=== PATIENT | female | born 1990 | race Caucasian/White ===

== ENCOUNTER 2018-12-20 14:43 | Emergency (ER) | payer SELFPAY ==
[2018-12-20] MEDS ORDERED: OXYCODONE-ACETAMINOPHEN 5-325 MG TABLET PO ONE (15:08)
--- NOTE | 2018-12-20 17:37 | ER Document Report ---
HPI - HPI Time Seen by Provider: 12/20/18 15:03 Pain Level: 5 Notes: Otherwise healthy 28-year-old female with history of abscesses presenting with abscess to left axilla. Patient reports this is been present for approximately 3 days. She denies any drainage from the area. Denies any fevers. Does report history of MRSA. Past Medical History - General Information source: Patient - Social History Smoking Status: Current Every Day Smoker Family History: Reviewed & Not Pertinent Patient has suicidal ideation: No Patient has homicidal ideation: No Infectious Medical History: Reports: Hx MRSA Surgical Hx: Negative - Immunizations Hx Diphtheria, Pertussis, Tetanus Vaccination: Yes Vertical Provider Document - CONSTITUTIONAL Notes: PHYSICAL EXAMINATION: GENERAL: Well-appearing, well-nourished and in no acute distress. HEAD: Atraumatic, normocephalic. EYES: Pupils equal round extraocular movements intact, conjunctiva are normal. ENT: Nares patent NECK: Normal range of motion LUNGS: No respiratory distress Musculoskeletal: Normal range of motion NEUROLOGICAL: Normal speech, normal gait. PSYCH: Normal mood, normal affect. SKIN: Large area of induration, erythema fluctuance noted to left axillary area. - INFECTION CONTROL TRAVEL OUTSIDE OF THE [place] IN LAST 30 DAYS: No Course - Re-evaluation Re-evalutation: Abscess incised and drained, see procedure note, patient tolerated well. Packing placed. - Vital Signs Vital signs: Temp Pulse Resp BP Pulse Ox 98.7 F 105 H 16 140/80 H 98 12/20/18 14:49 12/20/18 14:49 12/20/18 14:49 12/20/18 14:49 12/20/18 14:49 Procedures - Incision and Drainage Left axilla Type: Simple Anesthetic type: 1% Lidocaine Blade size: 11 I&D procedure: Betadine prep applied Incision Method: Incision made by scalpel Discharge - Discharge Clinical Impression: Abscess Condition: Stable Disposition: HOME, SELF-CARE Additional Instructions: You were seen for an abscess that required drainage. Please clean this area with soap and water twice daily and apply a topical antibiotic. Dress the area after each cleaning. Return to the emergency department in 48 hours for packing removal . Please return if you develop fever, vomiting, the pain at the site worsens, you notice spreading redness from the area, or you have any other symptoms that are concerning to you. Prescriptions: Sulfamethoxazole/Trimethoprim [Bactrim Ds Tablet] 1 tab PO BID #14 tablet
[2018-12-20 17:44] VITALS: BP 128/69
== END 2018-12-20 17:45 | disposition home or self-care (01) ==
LOC: ER 14:43
DX: L02.412 Cutaneous abscess of left axilla (principal); Z86.14 Personal history of Methicillin resistant Staphylococcus aureus infection; F17.200 Nicotine dependence, unspecified, uncomplicated
CPT/HCPCS: 10060; A6266; 99282

== ENCOUNTER 2018-12-22 10:06 | Emergency (ER) | payer SELFPAY ==
[2018-12-22 10:15] VITALS: BP 132/70
== END 2018-12-22 11:10 | disposition left against medical advice (07) ==
LOC: ER 10:06
DX: Z53.21 Procedure and treatment not carried out due to patient leaving prior to being seen by health care provider (principal)

== ENCOUNTER 2018-12-22 18:28 | Emergency (ER) | payer SELFPAY ==
--- NOTE | 2018-12-22 18:47 | ER Document Report ---
ED Medical Screen (RME) - General Chief Complaint: Wound Recheck Stated Complaint: ABSCESS RECHECK Time Seen by Provider: 12/22/18 18:43 TRAVEL OUTSIDE OF THE [place] IN LAST 30 DAYS: No - HPI Notes: 12/22/18 18:45 28 year old female to the ED for wound check and packing change. She had this drained two days ago. She has NOT been taking her antibiotics. I performed a brief medical screening exam on this patient and determined that this patient needs further evaluation and management from [facility] ER provider. I have ordered labs and imaging studies as indicated to aid in expediting the patient's care. - Related Data Allergies/Adverse Reactions: No Known Allergies Allergy (Verified 12/22/18 18:43) Past Medical History - Immunizations Hx Diphtheria, Pertussis, Tetanus Vaccination: Yes
[2018-12-22] MEDS ORDERED: SULFAMETHOXAZOLE/TRIMETHOPRIM 800-160 MG TABLET PO ONE (19:12)
--- NOTE | 2018-12-22 19:17 | ER Document Report ---
HPI - HPI Time Seen by Provider: 12/22/18 18:43 Pain Level: 3 Context: Patient is a 28-year-old female who presents to the emergency department with a chief complaint of left arm abscess. Patient reports she was seen 2 days ago and had an I&D of the left axilla. Patient reports she has had abscesses underneath the axilla before and does have a history of MRSA. Patient reports the wound was packed but continues to drain a thick yellow drainage with foul smell. Patient denies fever. Patient reports pain to the site. Patient states that she has not been taking her antibiotics as she just got them filled today. Patient has not had a dose today. - REPRODUCTIVE Reproductive: DENIES: : Past Medical History - General Information source: Patient - Social History Smoking Status: Current Every Day Smoker Chew tobacco use (# tins/day): No Frequency of alcohol use: None Drug Abuse: None Lives with: Friend Family History: Reviewed & Not Pertinent Patient has suicidal ideation: No Patient has homicidal ideation: No - Past Medical History Cardiac Medical History: Reports: None Pulmonary Medical History: Reports: None EENT Medical History: Reports: None Neurological Medical History: Reports: None Endocrine Medical History: Reports: None Renal/ Medical History: Reports: None Malignancy Medical History: Reports: None GI Medical History: Reports: None Musculoskeletal Medical History: Reports None Skin Medical History: Reports None Psychiatric Medical History: Reports: None Traumatic Medical History: Reports: None Infectious Medical History: Reports: None Surgical Hx: Negative - Immunizations Hx Diphtheria, Pertussis, Tetanus Vaccination: Yes Vertical Provider Document - CONSTITUTIONAL Agree With Documented VS: Yes Exam Limitations: No Limitations General Appearance: No Apparent Distress - INFECTION CONTROL TRAVEL OUTSIDE OF THE [place] IN LAST 30 DAYS: No - HEENT HEENT: Atraumatic, Normocephalic, PERRLA - NECK Neck: Normal Inspection - RESPIRATORY Respiratory: Breath Sounds Normal, No Respiratory Distress - CARDIOVASCULAR Cardiovascular: Regular Rate, Regular Rhythm - GI/ABDOMEN Gastrointestinal: Abdomen Soft, Abdomen Non-Tender, Normal Bowel Sounds - MUSCULOSKELETAL/EXTREMETIES Musculoskeletal/Extremeties: FROM, Non-Tender - NEURO Level of Consciousness: Awake, Alert, Appropriate - DERM Integumentary: Abscess Notes: Patient has an abscess underneath the left axilla. This was I indeed 2 days ago. There is packing hanging out of the incision with a yellow drainage. + foul odor. No surrounding cellulitis. Course - Re-evaluation Re-evalutation: 12/22/18 19:14 Patient will require examination of the abscess. Will I&D and repacked the dressing. We will give patient her first dose of Bactrim here and reiterated the importance of taking the antibiotics at home to treat the infection. Patient will need to return in 2 days for a wound recheck. 12/22/18 20:02 I did remove the old packing which was soaked in yellow drainage. I did irrigate the wound with 20 cc of saline. I did investigate the wound which did not reveal any pus pockets. The wound does appear deep. I did repack the wound. Patient was given her first dose of Bactrim here. Patient to return in 2 days for recheck. Discharge - Discharge Clinical Impression: Abscess Condition: Stable Disposition: HOME, SELF-CARE Additional Instructions: *Today he was seen in the emergency department for a wound recheck. The wound did not need to be reevaluated and packed. You do need to return in 2 days to have this rechecked. Please monitor for signs of worsening to include redness, swelling, increased drainage and fever. Please return the emergency department prior to 2 days if you do experience any of the symptoms. Please keep the packing in place as this will keep the wound open. *You have been given a dose of Bactrim today while you are here in the emergency department. You do need to take your oral antibiotics for its full completed course. ABSCESS: You have an abscess (boil). This a pus-forming infection, usually due to staph. Some boils may be left to drain on their own, but most require lancing. From the time the tender lump first appears, it may be three or four days before the abscess is ready to sadie. Local heat and rest help at this stage of treatment. An antibiotic may prevent spread of the infection. Once the abscess is opened, packing may be placed into it. This is done so pus is not sealed inside by premature closure of the cavity. The packing will be removed at your follow-up visit or you may be advised to remove it yourself at home. Sometimes this packing must be replaced a few times during healing. The wound will heal with surprisingly little scar. Depending on the size and location of an abscess, healing can take one to four weeks. You may shower and wash the area around the incision site two or three times a day. Antibiotics may be prescribed, but are usually not necessary after an abscess has been drained. If you develop fever, chills, worsening pain, or increasing swelling in the area, call the doctor or return immediately. POST INCISION AND DRAINAGE: You have had an incision made to allow drainage of an abscess. The incision must remain open so that pus and debris can drain from the wound. If the abscess cavity is large, packing is placed. This keeps the tissues from collapsing and trapping pus inside, while the body shrinks the cavity. The packing may need to be replaced every day or two. The physician will instruct you on the packing. Keep a bulky dressing over the area. Replace it if it becomes saturated with blood or pus. Do not disturb the packing (if present). You may shower and cleanse the area with gentle soap and warm water two or three times a day. Local warmth may be soothing, and may promote faster healing. Return if you develop high fever or chills, or if you note spreading redness, increasing swelling, or increasing tenderness. TRIMETHOPRIM-SULFA: You have been given a prescription for trimethoprim-sulfa (TMS, Septra, Bactrim). This is a combination antibiotic of the sulfa class, often used for urinary tract infections, middle ear infections, bronchitis, shigella intestinal infection, and Pneumocystis pneumonia. TMS is usually well-tolerated. Occasional side effects include nausea and decreased appetite. Septra is not recommended for infants less than two months of age. Do not take this medication if you have experienced severe side effects or allergy to sulfa medicine. You should stop this medicine at once and contact your physician if you develop any rash, joint pain, shortness of breath, bruising, or jaundice (yellow color in the skin), or if you develop any other new or unusual symptoms. FOLLOW-UP CARE: Most simple abscesses will not require a follow up visit. If you had packing placed in the abscess, remove it as instructed by the physician. If you have been referred to a physician for follow-up care, call the physicians office for an appointment as you were instructed or within the next two days. If you experience worsening or a significant change in your symptoms, return to the Emergency Department at any time for re-evaluation.
== END 2018-12-22 20:12 | disposition home or self-care (01) ==
LOC: ER 18:28
DX: L02.414 Cutaneous abscess of left upper limb (principal); F17.200 Nicotine dependence, unspecified, uncomplicated; Z86.14 Personal history of Methicillin resistant Staphylococcus aureus infection
CPT/HCPCS: 99282

== ENCOUNTER 2018-12-24 12:37 | Emergency (ER) | payer SELFPAY ==
[2018-12-24 12:50] VITALS: BP 140/77
--- NOTE | 2018-12-24 13:01 | ER Document Report ---
HPI - HPI Time Seen by Provider: 12/24/18 12:51 Pain Level: Denies Context: Patient is a 28-year-old female who presents to the emergency department with a chief complaint of wound recheck. Patient reports she was seen here 2 days ago and had her left axilla wound repacked. Patient reports she has been taking her antibiotics as prescribed. Patient reports her pain has improved although still present. Patient denies fever. Patient denies excessive amount of drainage. - REPRODUCTIVE LMP: 12/2018 Reproductive: DENIES: : Past Medical History - General Information source: Patient - Social History Smoking Status: Current Every Day Smoker Chew tobacco use (# tins/day): No Frequency of alcohol use: None Drug Abuse: None Lives with: Family Family History: Reviewed & Not Pertinent Patient has suicidal ideation: No Patient has homicidal ideation: No - Past Medical History Cardiac Medical History: Reports: None Pulmonary Medical History: Reports: None EENT Medical History: Reports: None Neurological Medical History: Reports: None Endocrine Medical History: Reports: None Renal/ Medical History: Reports: None Malignancy Medical History: Reports: None GI Medical History: Reports: None Musculoskeletal Medical History: Reports None Skin Medical History: Reports None Psychiatric Medical History: Reports: None Traumatic Medical History: Reports: None Infectious Medical History: Reports: None Surgical Hx: Negative - Immunizations Hx Diphtheria, Pertussis, Tetanus Vaccination: Yes Vertical Provider Document - CONSTITUTIONAL Agree With Documented VS: Yes Exam Limitations: No Limitations General Appearance: No Apparent Distress - INFECTION CONTROL TRAVEL OUTSIDE OF THE [place] IN LAST 30 DAYS: No - HEENT HEENT: Atraumatic, Normocephalic, PERRLA - NECK Neck: Normal Inspection - RESPIRATORY Respiratory: Breath Sounds Normal, No Respiratory Distress - CARDIOVASCULAR Cardiovascular: Regular Rate, Regular Rhythm - GI/ABDOMEN Gastrointestinal: Abdomen Soft, Abdomen Non-Tender, Normal Bowel Sounds - MUSCULOSKELETAL/EXTREMETIES Musculoskeletal/Extremeties: FROM, Non-Tender - NEURO Level of Consciousness: Awake, Alert, Appropriate - DERM Integumentary: Warm, Dry Notes: Healing incised abscess noted underneath the left axilla with packing still present. No significant edema, erythema or excessive amount of drainage. Minimal tenderness around the area. Course - Re-evaluation Re-evalutation: 12/24/18 13:00 Packing was removed with a small amount of yellow exudate. There is no active drainage from the wound. I did see the patient 2 days ago and the wound does appear much better without erythema, edema or extreme tenderness. Patient reports feeling much better. At this time I do not believe additional packing is necessary. I did give patient strict return precautions. - Vital Signs Vital signs: Temp Pulse Resp BP Pulse Ox 98.1 F 93 18 140/77 H 100 12/24/18 12:48 12/24/18 12:48 12/24/18 12:48 12/24/18 12:48 12/24/18 12:48 Discharge - Discharge Clinical Impression: Encounter for wound re-check Condition: Stable Disposition: HOME, SELF-CARE Additional Instructions: *Today you are seen in the emergency department for a wound recheck. The packing was removed from the draining abscess to the left axilla. It does appear to be healing well. It may continue to still drain over the next few days. You can use warm compresses if needed. Please continue to take your antibiotics for its full course of 1 week. Please use Tylenol and ibuprofen as needed for pain and return to the emergency department if you have any new or worsening symptoms such as swelling, redness, excessive drainage, fever.
== END 2018-12-24 13:23 | disposition home or self-care (01) ==
LOC: ER 12:37
DX: L02.412 Cutaneous abscess of left axilla (principal); F17.200 Nicotine dependence, unspecified, uncomplicated

== ENCOUNTER 2019-07-25 19:35 | Emergency (ER) | payer MEDICAID ==
[~2019-07-25 19:35] MED LIST: ATROPINE SULFATE INJ 1 MG/10 ML DISP.SYRIN IV ONE; EPINEPHRINE INJ 1 MG/10 ML DISP.SYRIN ONE; NOREPINEPHRINE BITARTRATE INJ/PF 4 MG/4 ML SDV IV ONE
[2019-07-25] MEDS ORDERED: PANTOPRAZOLE SODIUM 40 MG VIAL IV ONE ×2 (20:01→20:03)
[2019-07-25] MEDS ORDERED: DEXTROSE 50%-WATER 25 GM/50 ML DISP.SYRIN IV ONE (20:06)
[2019-07-25] MEDS ORDERED: SODIUM BICARBONATE 8.4% INJ 50 MEQ/50 ML DISP.SYRIN ONE (20:17)
[2019-07-25 20:36] LABS: INTERNATIONAL RATION (INR) 4.09; PROTHROMBIN TIME 40.7 SEC (11.4-15.4)
[2019-07-25 20:50] LABS: HEMOGLOBIN 13.3 g/dL (12.0-15.5); MEAN CORPUSCULAR HEMOGLOBIN 29.3 pg (27.0-33.4); MEAN CORPUSCULAR HGB CONC 30.9 g/dL (32.0-36.0); MEAN CORPUSCULAR VOLUME 95 fl (80-97); RED BLOOD COUNT 4.54 10^6/uL (3.72-5.28); RED CELL DISTRIBUTION WIDTH 15.3 % (11.5-14.0)
[2019-07-25 20:52] LABS: PLATELET COUNT 72 10^3/uL (150-450)
[2019-07-25 20:55] LABS: ABSOLUTE LYMPHOCYTES# (MANUAL) 2.8 10^3/uL (0.5-4.7); ABSOLUTE MONOCYTES # (MANUAL) 0.8 10^3/uL (0.1-1.4); BAND NEUTROPHILS % (MANUAL) 7 % (3-5); BASOPHILS % (MANUAL) 0 % (0-2); EOSINOPHILS % (MANUAL) 1 % (0-6); LYMPHOCYTES % (MANUAL) 46 % (13-45); MONOCYTES % (MANUAL) 13 % (3-13); SEGMENTED NEUTROPHILS % (MAN) 33 % (42-78); TOTAL CELLS COUNTED 100
[2019-07-25 20:56] LABS: ANISOCYTOSIS 1+; PLATELET COMMENT DECREASED; POLYCHROMASIA 1+
[2019-07-25 23:53] VITALS: BP 49/34
[2019-07-26] MEDS ORDERED: ETOMIDATE INJ/PF 20 MG/10 ML SDV IV ONE (00:03)
--- NOTE | 2019-07-26 01:23 | Progress Note ---
Provider Note Provider Note: An 1925 I was called emergently to the ED for a 29-year-old female who was arriving EMS post cardiac arrest. EMS reports they were called to the scene for difficulty breathing and when they arrived to the scene, patient's face and neck were cyanotic, agonal breathing and weak radial pulses. EMS began rescue breath ing at which time pulses were lost CPR was started. EMS achieved ROSC, a total of 4 times in the field with a total code time of approximately 1 hour and 20 minutes. She received 6 rounds of epi,1 amp of bicarb, 1 amp of D10, 1 amp of calcium, Levophed was started at 8 mics/min, and a D50 infusion was initiated. A #3 I gel airway was inserted with continuous bagging. Per EMS report patient was discharged from [facility], on the day prior to presentation here with a diagnosis of gastroenteritis. Per outside hospital records patient has a history of gallstones status post cholecystectomy 4 years ago and hypertension. When patient arrived she was noted to have a large amount of coffee-ground emesis coming from nose and mouth skin was mottled and cool unable to obtain blood pressure and CPR was in progress. Please see code sheet on nursing notes. She did have multiple rounds of CPR with ROSC lasting for only a few minutes. Her OG tube was draining dark red blood. At 2031 during CPR performed a pulse check, pulses were absent on the monitor she had a wide complex PEA. CPR was stopped, time of 2031
--- NOTE | 2019-07-26 01:27 | Operative Report ---
Bedside Procedure - History of Present Illness Indication for Procedure: Emergent placement during cardiac arrest, multiple blood transfusions. Date: 07/25/19 Provider: ALEN LONDON - Central Line Right Femoral Time completed: 19:57 Consent obtained: No - Emergent Central line pre-insertion: Other - Emergent insertion Central line lumen type: Triple Ultrasound guided: No Line secured with sutures: Yes Central line post-insertion: Blood return from lumens, Sutured Complications: No
--- NOTE | 2019-07-26 02:00 | ER Document Report ---
ED General - General Chief Complaint: Cardiac Arrest Stated Complaint: CARDIAC ARREST TRAVEL OUTSIDE OF THE [place] IN LAST 30 DAYS: No - HPI Notes: Patient was a 29-year-old female brought into the emergency department for evaluation via EMS. History is obtained eventually from family friends, then EMS. Evidently the patient has started complaining of some abdominal pain, was seen in the emergency department at [facility] at 1 AM the night before. She was diagnosed with gastroenteritis. She was sent home with a[place]anna [place] Bentyl. The patient had some progression of the pain earlier in the evening, and according to onlookers started to look unwell. They were going to drive her to the hospital, but decision was made to call EMS. Upon arrival of EMS, the patient went into cardiac arrest and CPR was instituted. The patient received multiple rounds of epinephrine, bicarb, dextrose, calcium, and Levophed was started. She was intubated with an eye gel. They did have ROSC total of 4 times, and actually the patient presented to the emergency department with a sinus rhythm. She did have weak radial pulses initially, was agonal he breathing over the advanced airway. - Related Data Allergies/Adverse Reactions: No Known Allergies Allergy (Verified 12/24/18 12:50) Past Medical History - General Information source: Emergency Med Personnel, [facility] Records, Outside Facility Records - Social History Smoking Status: Unknown if Ever Smoked Family History: Other - unknown Patient has homicidal ideation: - unable to assess - Past Medical History Cardiac Medical History: Reports: Hx Hypertension GI Medical History: Reports: Other - Chloelithiasis Past Surgical History: Reports: Hx Cholecystectomy - Immunizations Hx Diphtheria, Pertussis, Tetanus Vaccination: Yes Review of Systems - Review of Systems -: Yes ROS unobtainable due to patient's medical condition Physical Exam - Vital signs Vitals: Pulse Ox 45 L 07/25/19 19:35 - Notes Notes: Patient initially brought to the emergency department for evaluation with advanced Sha. She had intraosseous lines and, she was cool, pale, mottled. Abdomen distended. Her mouth, face, hair were covered in dark brown bloody emesis. Head was normocephalic and appears atraumatic, pupils are initially 5 mm and nonreactive. On initial evaluation the patient did have regular heart sounds, rhonchorous breath sounds with assisted ventilation. Abdomen was distended and cool to the touch. Extremities were mottled. Course - Re-evaluation Re-evalutation: 07/26/19 01:46 Patient presented to the emergency department for evaluation at 1927, status post cardiac arrest. I was present in the room upon patient's arrival. Upon transfer to the table, it was noted that the patient was pulseless. Patient moved to the bed with backboard in place, CPR started. Pads were connected to the defibrillator. Patient was initially in PEA, 1 mg of epinephrine administered. CPR continued and pulses verified with CPR. And pulse check, the patient did have a sinus rhythm, tachycardic, pulses were noted. In 1936 the patient was administered etomidate and intubated with glide scope, 7.5 cm ET tube inserted, 21 cm at the teeth, with positive color change. Please see separate procedure note. OG tube was then placed. Fanps-pa-vrbe glucose was noted to be 158. Order was given verbally for OG placement. OG tube placed to suction and maroon blood was suctioned from the stomach. Temperature Bustos was placed. I called for infusion of 2 units of packed red cells, emergency release blood. Patient had ROSC for 9 to 10 minutes, when she was again noted to be pulseless. Patient back in PEA. CPR begun, 1 mg of epinephrine pushed. Patient again with good pulses with compressions. She had continued PEA, no pulses. CPR resumed. 1 minute later patient's PEA showed a heart rate in the 30s, she was administered 1 mg of atropine IV. At the three-minute lee another milligram of IV epinephrine was ordered. After 1 minute of continued high- quality CPR, pulse check revealed palpable pulses. Patient once again lost pulses, continued PEA, CPR started, epinephrine given via IV push. Good pulses with compressions. ROSC obtained on rhythm check, and cardiac activity verified with bed side ultrasound. Patient had multiple episodes of PEA, loss of pulses, and ROSC. During ROSC times, patient had Protonix IV push. Rapid infusion of 2 further units of blood were ordered during this time as well. With final ROSC, patient had increased Levophed, from 8 mcg/min to 12 mcg/min, the third and fourth units of emergency blood were started, epinephrine drip started at 5 mics per minute. IV fluids infused. 2 minutes later pulses were lost again, initially PCP ID started with the PEA underlying rhythm. Epinephrine drip was opened wide. Pulse check showed wide complex PEA then asystole. Her pupils were now 8 mm and completely unreactive. She had not made any meaningful movements during the course of this code. Time of declared at 2031. I notified friends, the only people present initially, who actually had her children present, of the patient's with CINDY Sampson, present. Patient's children are being cared for by their respective fathers. I spoke with patient's father at [id number], he was unfortunately in [place], not available to come in person. He was notified of his daughter's . Given this patient's young age and lack of known significant medical issues, she will become a medical and scientific illustrator's case. - Vital Signs Vital signs: Temp Pulse Resp BP Pulse Ox 0 F L 23 H 49/34 L 65 L 07/25/19 20:26 07/25/19 20:26 07/25/19 20:26 07/25/19 20:20 - Laboratory Result Diagrams: 07/25/19 19:42 07/25/19 19:42 Laboratory results interpreted by me: 07/25/19 07/25/19 07/25/19 19:40 19:42 19:42 MCHC 30.9 L RDW 15.3 H Plt Count 72 L Seg Neuts % (Manual) 33 L Band Neutrophils % 7 H Lymphocytes % (Manual) 46 H PT APTT POC Glucose 158 H Crossmatch See Detail 07/25/19 19:42 MCHC RDW Plt Count Seg Neuts % (Manual) Band Neutrophils % Lymphocytes % (Manual) PT 40.7 H APTT 195.9 H* POC Glucose Crossmatch - EKG Interpretation by Me Additional EKG results interpreted by me: 07/26/19 02:00 Irregular/sinus versus junctional rhythm, tachycardic with a rate of 168. Right axis deviation, IVCD, right bundle branch block. No old studies available for comparison. Procedures - Intubation Orotracheal Time of Intubation: 19:37 Medications: Etomidate Intubation method: Orotracheal Blade type: Gerald Blade size: 3 Equipment used: Glidescope ETT size: 7.5 ETT secured at: Teeth ETT secured at (cm): 21 Breath Sounds after Intubation: Equal End tidal CO2 confirmed: Yes Critical Care Note - Critical Care Note Total time excluding time spent on procedures (mins): 65 Discharge - Discharge Clinical Impression: Cardiac arrest, Upper GI bleeding Disposition:
--- NOTE | 2019-07-26 07:30 | EKG REPORT ---
SEVERITY:- ABNORMAL ECG - ATRIAL FIBRILLATION RBBB AND LPFB : Confirmed by: Bandar Pittman MD 26-Jul-2019 07:29:21
[2019-07-26 09:57] LABS: PARTIAL THROMBOPLASTIN TIME 195.9 SEC (23.5-35.8)
== END 2019-07-26 01:38 | disposition expired ==
LOC: ER 19:35
DX: I46.9 Cardiac arrest, cause unspecified (principal); K92.0 Hematemesis; K52.9 Noninfective gastroenteritis and colitis, unspecified; I10 Essential (primary) hypertension; I45.10 Unspecified right bundle-branch block; Z90.49 Acquired absence of other specified parts of digestive tract
CPT/HCPCS: 93005; 99285; 86900; 86901; 36415; 36430; 86850; 82962; 85025; 85610; 85730; 86920; 93010; 36556; 31500; P9016; J0461; J0171; J3490